=== PATIENT | female | born 1990 | race Caucasian/White ===

== ENCOUNTER 2023-10-30 12:32 | Emergency (ER) | payer MEDICAID ==
[~2023-10-30] VITALS: Ht 170.2 cm; Wt 61.4 kg
[2023-10-30] MEDS: FAMOTIDINE 20 MG TAB PO ONE (13:19)
[2023-10-30] MEDS: DexAMETHasone 4 MG TAB PO ONE (13:19)
[2023-10-30] MEDS: diphenhdrAMINE HCL 25 MG CAP PO ONE (13:19)
[2023-10-30] MEDS: EPINEPHrine HCL 1 MG/1 ML AMP IM ONE (13:20)
[2023-10-30] MEDS ORDERED: EPIN0.1I11 IJ (14:18)
[2023-10-30] MEDS ORDERED: PRED1PAK9 PO (14:18)
[2023-10-30 14:25] VITALS: BP 118/70; PULSE 100; RESP 18; TEMP 98.2; O2SAT 98
== END 2023-10-30 14:31 | disposition home or self-care (01) ==
LOC: ER 12:32
DX: T78.3XXA Angioneurotic edema, initial encounter (principal); T78.49XA Other allergy, initial encounter; J45.909 Unspecified asthma, uncomplicated; X58.XXXA Exposure to other specified factors, initial encounter
CPT/HCPCS: 96372; 99284; J0171; J8540